=== PATIENT | female | born 1970 ===

== ENCOUNTER 2017-08-28 13:41 | Emergency (ER) | payer OTHER ==
[2017-08-28 13:52] VITALS: BP 121/82; PULSE 68; RESP 18; TEMP 98; O2SAT 97
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
--- NOTE | 2017-08-28 15:35 | RAD ---
PROCEDURE: Cervical Spine Radiographs. HISTORY: Pain. COMPARISON: None. FINDINGS: BONES: Mild kyphosis replaces anatomic lordosis. No fracture. Dens Intact. DISC SPACES: Normal. SOFT TISSUES: Normal. No prevertebral soft tissue swelling. OTHER FINDINGS: None. IMPRESSION: No significant or acute findings to account for/ related to the clinical presentation.
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
== END 2017-08-28 16:15 | disposition home or self-care (01) ==
LOC: H.ER 13:41
DX: S53.401A Unspecified sprain of right elbow, initial encounter (principal); S33.5XXA Sprain of ligaments of lumbar spine, initial encounter; V43.62XA Car passenger injured in collision with other type car in traffic accident, initial encounter; Y92.410 Unspecified street and highway as the place of occurrence of the external cause